=== PATIENT | male | born 1960 | race Caucasian/White ===

== ENCOUNTER 2018-07-08 07:50 | Emergency (ER) | payer OTHER ==
[~2018-07-08] VITALS: Ht 182.9 cm; Wt 89.2 kg
--- NOTE | 2018-07-08 08:27 | NUR ---
PT REPORTS HAVING RIGHT BACK PAIN FOR 2 DAYS. DENIES URINARY SYMPTOMS AND NUMBNESS AND TINGLING DOWN LEGS. PT IS ALERT, ORIENTED, WITH NAD.
--- NOTE | 2018-07-08 08:47 | NUR ---
PT TAKEN TO X RAY.
[2018-07-08] MEDS ORDERED: KETOROLAC 30 MG/1 ML ONE (08:55)
[2018-07-08] MEDS ORDERED: METHOCARBAMOL 750 MG TABLET ONE (08:55)
[2018-07-08] MEDS ORDERED: HYDROcodone/APAP 5/325 TABLET ONE (08:56)
[2018-07-08] MEDS ORDERED: HYDROcodone/APAP 5/325 TABLET PO ONE (09:00)
[2018-07-08] MEDS ORDERED: METHOCARBAMOL 750 MG TABLET PO ONE (09:00)
[2018-07-08] MEDS ORDERED: KETOROLAC 30 MG/1 ML IM ONE (09:00)
[2018-07-08 09:43] VITALS: BP 107/66
--- NOTE | 2018-07-08 09:43 | NUR ---
Patient given discharge instructions and they have confirmed that they understand the instructions. Patient ambulatory with steady gait.
== END 2018-07-08 09:57 | disposition home or self-care (01) ==
LOC: ED 09:51
DX: M46.1 Sacroiliitis, not elsewhere classified (principal)
CPT/HCPCS: 72110; 96372; 99283; J1885